=== PATIENT | male | born 1980 | race Caucasian/White ===

== ENCOUNTER 2017-08-03 17:51 | Emergency (ER) | payer OTHER ==
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
[2017-08-03 18:14] VITALS: BP 111/66
== END 2017-08-03 18:32 | disposition home or self-care (01) ==
LOC: ED 17:51
DX: Z04.1 Encounter for examination and observation following transport accident (principal)
CPT/HCPCS: 99283